=== PATIENT | female | born 1960 | race Caucasian/White ===

== ENCOUNTER 2023-02-19 14:26 | Outpatient (REF) | payer OTHER, SELFPAY ==
--- NOTE | ~2023-02-19 | XR_ITS ---
EXAMINATION: XR LUMBOSACRAL SPINE CLINICAL INFORMATION: Reason for Exam M54.40 - Lumbago with sciatica, unspecified side COMPARISON: None TECHNIQUE: 4 views of the lumbar spine FINDINGS: 5 nonrib-bearing lumbar-type vertebral bodies. Status post L3-L5 discectomy and posterior spinal fusion. No hardware fracture or complication. Vertebral body heights are maintained. Grade 1 anterolisthesis of L3 on L4 not significantly changed on flexion extension views. Mild degenerative disc disease at L5-S1 and at the thoracolumbar junction with loss of disc space height. Paravertebral soft tissues are unremarkable. XR/XR lumbar spine 4V min IMPRESSION: 1. Status post L3-L5 discectomy and posterior spinal fusion. No hardware fracture or complication. 2. Grade 1 anterolisthesis of L3 on L4 not significantly changed on flexion extension views. 3. Mild degenerative disc disease at L5-S1 and at the thoracolumbar junction.
== END 2023-02-19 14:27 | disposition home or self-care (01) ==
LOC: HO.HOSX 14:26
PROVIDERS: Visit Provider Physician Assistant
DX: M54.40 Lumbago with sciatica, unspecified side (principal)
CPT/HCPCS: 72110; 99212

== ENCOUNTER 2025-08-06 12:07 | Outpatient (AMB) | payer MEDICARE, MEDICAID, SELFPAY ==
--- NOTE | 2025-08-06 12:09 | MHC.OFFVIS ---
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 Allergies oxycodone Adverse Reaction (Severe, Verified 08/06/25 12:12) Palpitations Medication List - Last Reconciled 08/06/25 by Azul Bacon LPN amlodipine 10 mg PO DAILY cane As directed cetirizine 10 mg PO DAILY fluticasone propionate 50 mcg/actuation sprays intranasal losartan 100 mg PO DAILY meloxicam 15 mg PO DAILY metformin 500 mg PO QAM metoprolol succinate ER 100 mg PO DAILY omeprazole 20 mg PO DAILY semaglutide (Ozempic) 2 mg subcut QWEEK simvastatin 20 mg PO BEDTIME HPI HPI CHRONIC BILATERAL LOW BACK PAIN: Details: History of Present Illness The patient is a 65-year-old female presenting for management of chronic pain. She has a history of back pain and reports that her pain symptoms persist. She is concerned that her fusion hardware is coming loose and wants to make sure that everything is where it's supposed to be . Pain Description - Location: The patient has a history of pain in her back and a shoulder issue. - Character: The pain is described as persistent. - Interference with function: She reports that her condition makes her feel tired. Physical Exam - Appears afebrile. - Alert and oriented. - Mood and affect appropriate. - Follows and participates in conversation appropriately. - Respiratory effort is unlabored. Pain Management: - Analgesia: The patient's pain is persistent. - Activities of Daily Living: The patient reports feeling tired. [facility] Medical History (Updated 06/05/25 @ 10:26 by Azul Bacon LPN) Primary osteoarthritis of both knees GERD (gastroesophageal reflux disease) Hyperlipidemia Diabetes Essential hypertension Physical Exam Vital Signs: Last Vital Signs Pulse 89 08/06/25 12:11 Resp 16 08/06/25 12:11 BP 180/74 H 08/06/25 12:11 Pulse Ox 97 08/06/25 12:11 Oxygen Delivery Method Room Air 08/06/25 12:11 BMI result Body Mass Index 46.5 Assessment & Plan Assessment & Plan (1) Back pain of lumbar region with sciatica: Code(s): M54.40 - Lumbago with sciatica, unspecified side Category: Medical (2) H/O spinal fusion: Code(s): Z98.1 - Arthrodesis status Category: Surgical Plan Plan Patient was informed and verbally consented to the use of an ambient scribe for clinic note documentation during this visit. 1. Chronic Pain/Failed Back Surgery - CT scan lumbar spine to rule out hardware malfunction. - Discussed options such as injections or SCS/ITP, but patient declined these. - Physical therapy with massage was also mentioned as a potential modality. - The patient will follow up with spine surgery after the CT scan to ensure stability of the fusion construct. Discussion Notes I discussed the patient's ongoing pain and the need for further diagnostic workup. I have ordered a CT scan and will have the patient follow up to review the results. We briefly reviewed potential treatment options, including physical therapy with massage as well as more invasive approaches like injections or an implant, should they be necessary in the future. Patient Instructions - Please get the CT scan that was ordered. - Please schedule a follow-up appointment after the CT scan is complete so we can review the results together. Orders: Orders CT lumbar spine wo IV con 08/06/25 M54.40 - Lumbago with sciatica, unspecified side, Z98.1 - Arthrodesis status Coding Level of Care Code New Pt Level 4 (80667) Diagnoses Back pain of lumbar region with sciatica M54.40 H/O spinal fusion Z98.1
[2025-08-06 12:11] VITALS: BP 180/74; PULSE 89; RESP 16; O2SAT 97; BMI 46.5
--- OUTSIDE RECORDS SUMMARY | 2025-08-06 15:24 | XMS_ITS | Data Portability ---
Author Organization [place] - [facility], Allergy Address [address] [address] Care Team Providers Care Internal Specialist Name Role Phone SAIRA SOUSA Primary Care Provider Assessment Encounter Date Assessment Date Assessment LastModified by Organization Details LastModified Time 12/05/2024 12/05/2024 Cerumen removed today to reveal damp skin with fungal hyphae. Recommend clotrimazole x 10 days and return to verify resolution and update audiometric testing. Once the infection has cleared, would consider fluocinolone and/or Lotrisone as maintenance, along with dry ear precautions and Q-tip avoidance. [email or web address] Not available 12/05/2024 09:30:53 12/18/2024 12/18/2024 64-year-old female with bilateral mycotic otitis externa presents for reevaluation. She reports persistent otic pruritus despite topical clotrimazole. External auditory canals with moderate fungal debris bilaterally, removed with suction. TMs are normal to inspection. Offered continuing antifungal drops versus ointment, and patient would like to trial the latter. Lotrisone placed into external auditory canals bilaterally. Patient will return in 2 weeks to verify resolution and update audiometric testing. Once the infection has cleared, would consider fluocinolone and/or Lotrisone as maintenance, along with dry ear precautions and Q-tip avoidance. [email or web address] Not available 12/18/2024 16:52:28 01/01/2025 01/01/2025 64-year-old female with history of recurrent fungal otitis externa presents for reevaluation of the ears. Patient reports ear pruritus resolved with Lotrisone in bilateral external auditory canals. External auditory canals are without obstruction or purulence today. TMs are normal to inspection. Audiometric testing demonstrates normal neurosensory hearing and tympanometry. Will send topical Lotrisone to use as maintenance medication 1-2x weekly for external ear pruritus. Patient will follow-up for routine cerumen debridement in 6 months. [email or web address] Not available 01/01/2025 16:58:36 07/06/2025 07/06/2025 64-year-old female, with a history of recurrent fungal otitis externa, presents for wax removal. Cerumen impaction was completely obstructing the bilateral external auditory canals and removed using a combination of instruments and suction. Patient tolerated the procedure well. Tympanic membranes are otherwise intact with well aerated middle ear spaces. Recommend hydrocortisone- acetic acid drops as needed for aural pruritus. Proper dosing and use was reviewed. Follow up in 4 months for repeat debridement. [email or web address] Not available 07/06/2025 18:13:08 Plan of Treatment Reminders Order Date Submit Date Provider Last Modified By Organization Details Last Modified Time Details Appointments Establish ed 15 2025 02:00P NAUN LEVIN Not available Not available Not available Lab None recorded. Referral None recorded. Procedures None recorded. Surgeries None recorded. Imaging None recorded. Medication Orders hydrocort isone-mason tic acid 1 %-2 % ear drops 2024 025 [facility] #[id number], [address] [place], [address], 07/06/2025 13:24:45 clotrimaz ole-betam ethasone 1 %-0.05 % topical cream 2024 025 [facility] #1024, [address] [place], [address], 01/01/2025 13:33:00 clotrimaz ole 1 % topical solution 2024 025 [facility] #[id number], [address] [place], [address], 12/05/2024 09:26:45 Patient TargetsNo targets recorded. Patient InstructionsNo instructions recorded. Reason for Referral None Reported. Results Created Date Observation Date Name Description Value Unit Range Abnormal Flag Note LastModifiedBy Organization Detail LastModifiedTime 01/02/20 25 audio gram No observ ation record ed. BARCODE Not Available 2024 17:17:45 Result Notes None recorded. Problems Name Problem SNOMED Code Status Onset Date Resolution Date Notes Provider Name and Address Organization Details Recorded Time Bilateral external auditory canal chronic otitis externa 54836809822 57290 Active 2015 Unspecifi ed chronic otitis externa, bilateral ; Note: Date Diagnosed : 12/20/2015 11:06 AM (H60.63) Not Available [facility] 4 02:12:46 Impacted cerumen of bilateral ears 19327508499 97325 Active 2015 Impacted cerumen, bilateral ; Note: Date Diagnosed : 12/20/2015 11:04 AM (H61.23) NAUN GUAN [address] [facility] [place],[address], [place], [address] , [facility] - [facility] 5 18:13:12 Acute otitis externa 56722309 Active 2023 ALESHIA GARCÍA PA-C [address] [facility] [place],[facility] [address], [place], [address] , [facility] - [facility] 4 14:52:36 Otorrhea 96422871 Active 2023 ALESHIA GARCÍA PA-C [address] [facility] [place],[facility] [address], [place], [address] , [facility] - [facility] 4 14:52:40 Impacted cerumen in left ear 62500569670 61182 Active 2023 ALESHIA GARCÍA PA-C [address], [place], [address] , [place] - [facility] 4 14:52:56 Acute otitis externa 89674775 Active 2023 ALESHIA GARCÍA PA-C [address] [facility] [place],[address], [place], [address] , [facility] - [facility] 4 14:53:02 Otitis externa 4159201 Active 2023 ALESHIA GARCÍA PA-C [address] [facility],[place] [address], [place], [address] , [facility] - [facility] 4 14:53:52 Bruxism 366261884 Active 2023 AUGUST ALBRIGHT MD [address] [facility],[place] [address], [place], [address] , [place] - [facility] 4 14:35:38 Candidal otitis externa 02070473 Active 2024 Carylkrunal Velez null, [place] - [facility] 5 09:26:05 Eczema of external auditory canal 14037187 Active 2024 Caryl canchola, [place] - [facility] 5 09:58:39 Chronic mycotic otitis externa 811239375 Active 2024 RADHA QURESHI PA-C [address] [facility],[place] [address], [place], [address] , [place] - [facility] 5 13:31:58 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 - [facility] 5 13:44:13 Itching of ear 690852923 Active 2024 NAUN GUAN [address] [facility] [place] [address], [place], [address] , [facility] - [facility] 5 13:23:18 Problem Notes None recorded. Procedures Surgical History Date Name Laterality Status Provider Name and Address Organization Details Recorded Time 5 Cerumen removal without microscope bilat completed NAUN GUAN [address] [facility] [place] [address], [place], [address], [facility] - [facility] 07/06/2025 18:11:51 5 Air & Speech Audio with Tymps - 83838, 86539 & 44962 completed AIRAM PERRY [address] [facility],[place] [address], [place], [address], [facility] - [facility] 01/01/2025 13:44:27 5 Cerumen removal without microscope bilat completed Caryl Velez [place] - [facility] 12/05/2024 09:57:53 4 Wax_DP completed AUGUST ALBRIGHT MD [address] [facility] [place] [address], [place], [address], [facility] - [facility] 03/24/2024 14:34:17 4 Cerumen removal without microscope left completed ALESHIA GARCÍA PA-C 100 [facility],[address], [address], [facility] - [facility] 01/20/2024 14:52:14 Imaging Results None recorded. Procedure Notes None recorded. Medical Equipment None Reported. Allergies Allergen ID Allergen Name Allergen Category Reaction Reaction Severity Criticality Documentation Date Start Date Code Code System Note Provider Name and Address Organization Details Recorded Time 449346 house dust allergeni c extract environme nt,medica tion dyspnea wheezing Not available Not available [facility] 07/06/20252007 90237 9 RxNorm Also aller gic to feath ers; same react ion SOB unrec ogniz ed react ion (text : Runny nose, code: 69198 003) (from exter nal sourc e) Not Available [employer] - External Data Service - prod 5 04:15:46 896201 acetamino phen / hydrocodo ne medicatio n Not available Not available Not available 07/06/20252021 79387 2 RxNorm Vomit ing with dosin g unrec ogniz ed react ion (text : GI intol eranc e, code: 24931 5008) (from exter nal sourc e) Not Available [employer] - External Data Service - prod 5 04:15:46 880550 acetamino phen / oxycodone medicatio n Not available Not available Not available 07/06/20252005 16446 3 RxNorm unrec ogniz ed react ion (text : Nause a And Vomit ing, code: 00113 000) [facility] Not Available [employer] - External Data Service - prod 5 04:15:46 717579 mite extract Not available other Not available Not available 07/06/20252007 05701 3 RxNorm Also aller gic to [facility]; same react ion Not Available [employer] External Data Service - prod 5 04:15:47 Medications Name Sig Start Date Stop Date Status Note LastModified by Organization Details LastModified Time amoxicill in 500 mg capsule TAKE 1 CAPSULE BY MOUTH EVERY 8 HOURS FOR 5 DAYS 12/05 completed Not Available Not Available Not Available metformin 500 mg tablet TAKE 1 TABLET BY MOUTH EVERY DAY WITH BREAKFAS T active Not Available Not Available No t Available terconazo le 0.4 % vaginal cream INSERT 1 APPLICAT ORFUL AT BEDTIME FOR 7 NIGHTS active Not Available Not Available No t Available neomycin- polymyxin -hydrocor t 3.5 mg/mL-10, 000 unit/mL-1 % ear solution 12/05 completed Medicati on ID: [id number] D uration Value: 6 Brand Name: neomycin -polymyx in-HC Se nd Method: E-Prescr ibed Sub s Allowed: subs OK Medic ationGen ericName : neomycin -polymyx in-HC Not Available Not Available Not Available doxycycli ne hyclate 100 mg capsule TAKE 1 CAPSULE ORALLY 2 TIMES A DAY FOR 10DAYS WITH AT LEAST 8OZ OF WATER DON'T LIE DOWN FOR 30 MIN 12/05 completed Not Available Not Available Not Available cetirizin e 10 mg tablet TAKE 1 TABLET BY MOUTH EVERY DAY active Not Available Not Available No t Available ibuprofen 800 mg tablet TAKE 1 TABLET BY MOUTH EVERY 8 HOURS NEEDED FOR PAIN 12/05 completed Not Available Not Available Not Available ofloxacin 0.3 % eye drops PLACE 1 TO 2 DROPS INTO EACH EYE EVERY 4 HOURS FOR 5 TO 7 DAYS 12/05 completed Not Available Not Available Not Available metoprolo l succinate ER 50 mg tablet,ex tended release 24 hr TAKE 1 TABLET BY MOUTH EVERY DAY active Not Available Not Available No t Available hydrocodo ne 5 mg-acetam inophen 325 mg tablet 12/05 completed Medicati on ID: [id number] D uration Value: 13 Brand Name: hydrocod one-acet aminophe n Send Method: E-Prescr ibed Sub s Allowed: subs OK Speci al Instruct ion: TK 1 T PO Q 8 TO 12 H PRN P Medica tionGene ricName: hydrocod one-acet aminophe n Not Available Not Available Not Available meloxicam 15 mg tablet TAKE 1 TABLET (15 MG TOTAL) BY MOUTH ONE TIME EACH DAY. active Not Available Not Available No t Available prednison e 20 mg tablet 12/05 completed Medicati on ID: [id number] D uration Value: 5 Brand Name: predniso ne Send Method: E-Prescr ibed Sub s Allowed: subs OK Medic ationGen ericName : predniso ne Not Available Not Available Not Available metoprolo l succinate ER 100 mg tablet,ex tended release 24 hr TAKE 1 TABLET BY MOUTH 1 TIME EACH DAY. DO NOT CRUSH OR CHEW. active Not Available Not Available No t Available acetamino phen 300 mg-codein e 30 mg tablet TAKE 1 TABLET BY MOUTH EVERY 8 HOURS NEEDED active Not Available Not Available No t Available amlodipin e 5 mg tablet 12/05 completed Medicati on ID: [id number] D uration Value: 30 Brand Name: amlodipi ne Send Method: E-Prescr ibed Sub s Allowed: subs OK Speci al Instruct ion: TK 1 T PO QD Medic ationGen ericName : amlodipi ne Not Available Not Available Not Available ketorolac 0.5 % eye drops PLEASE SEE ATTACHED FOR DETAILED DIRECTIO NS active Not Available Not Available No t Available ofloxacin 0.3 % ear drops PLEASE SEE ATTACHED FOR DETAILED DIRECTIO NS 12/05 completed Not Available Not Available Not Available methocarb caitlyn 750 mg tablet TYAKE 2 TABLETS BY MOUTH (1500MG) EVERY 6 HOURS NEEDED FOR SPASMS active Not Available Not Available No t Available clindamyc in 1 % topical gel APPLY TO AXILLA TWICE A DAY NEEDED FLARES active Not Available Not Available No t Available hydrocort isone-mason tic acid 1 %-2 % ear drops INSTILL 2 DROPS INTO AFFECTED EARS BY OTIC ROUTE 4 TIMES PER DAY NEEDED FOR ITCHING active Not Available Not Available No t Available amlodipin e 10 mg tablet TAKE 1 TABLET BY MOUTH 1 TIME EACH DAY. active Not Available Not Available No t Available simvastat in 20 mg tablet TAKE 1 TABLET BY MOUTH EVERYDAY AT BEDTIME active Not Available Not Available No t Available Cipro 500 mg tablet Take 1 tablet by mouth twice a day 12/05 completed Medicati on ID: [id number] D uration Value: 10 Prescri bed By Name: GENE Jordan nd Name: Donnie Se nd Method: E-Prescr ibed Sub s Allowed: subs OK Medic ationGen ericName : Cipro Not Available Not Available Not Available triamcino lone acetonide 0.1 % topical ointment APPLY A THIN LAYER TOPICALL Y TO AFFECTED AREA DAILY active Not Available Not Available No t Available clotrimaz ole-betam ethasone 1 %-0.05 % topical cream APPLY TO THE SKIN OF THE AFFECTED EXTERNAL EAR CANAL WITH FINGERTI P TWICE WEEKLY active Not Available Not Available No t Available lidocaine 5 % topical patch APPLY 1 PATCH TOPICALL Y DAILY (12 HOURS ON, 12 HOURS OFF) active Not Available Not Available No t Available clotrimaz ole 1 % topical solution INSTILL 4 DROPS INTO BOTH EARS TWICE DAILY FOR 10 DAYS active Not Available Not Available No t Available Ear Drops (carbamid e peroxide) 6.5 % PLEASE SEE ATTACHED FOR DETAILED DIRECTIO NS active Not Available Not Available No t Available diclofena c potassium 50 mg tablet TAKE 1 TABLET (50 MG TOTAL) BY MOUTH 3 TIMES A DAY FOR 10 DAYS 12/05 completed Not Available Not Available Not Available omeprazol e 20 mg capsule,d elayed release TAKE 1 CAPSULE BY MOUTH 1 TIME EACH DAY. active Not Available Not Available No t Available hydrochlo rothiazid e 25 mg tablet 12/05 completed Medicati on ID: [id number] D uration Value: 30 Brand Name: hydrochl orothiaz boaz Send Method: E-Prescr ibed Sub s Allowed: subs OK Speci al Instruct ion: TK 1 T PO D Medica tionGene ricName: hydrochl orothiaz boaz Not Available Not Available Not Available clobetaso l 0.05 % topical ointment 2014 active Medicati on ID: [id number] D uration Value: 7 Brand Name: clobetas ol Send Method: E-Prescr ibed Sub s Allowed: subs OK Medic ationGen ericName : clobetas ol Not Available Not Available Not Available triamcino lone acetonide 0.1 % lotion APPLY TO SCALP TWICE DAILY NEEDED FOR FLARES, DECREASE USE SYMPTOMS IMPROVE 12/05 completed Not Available Not Available Not Available methylpre dnisolone 4 mg tablets in a dose pack TAKE 1 TABLET BY MOUTH DIRECTED ON THE PACKAGE. active Not Available Not Available No t Available benazepri l 10 mg tablet 12/05 completed Medicati on ID: [id number] D uration Value: 30 Brand Name: benazepr il Send Method: E-Prescr ibed Sub s Allowed: subs OK Speci al Instruct ion: TK 1 T PO D. Medic ationGen ericName : benazepr il Not Available Not Available Not Available hydrocort isone 2.5 % topical ointment APPLY TO PINK AREAS ON AXILLA TWICE A DAY NEEDED FOR FLARES, DECREASE SYMPTOMS IMPROVE 12/05 completed Not Available Not Available Not Available ketoconaz ole 2 % topical cream APPLY TO FACE TWICE A DAY NEEDED FOR FLARES active Not Available Not Available No t Available losartan 100 mg tablet TAKE 1 TABLET BY MOUTH 1 TIME EACH DAY. active Not Available Not Available No t Available fluticaso ne propionat e 50 mcg/actua tion nasal spray,luna pension SPRAY 2 SPRAYS BY NASAL ROUTE DAILY active Not Available Not Available No t Available loratadin e 10 mg tablet 2013 active Medicati on ID: [id number] D uration Value: 30 Brand Name: loratadi ne Send Method: E-Prescr ibed Sub s Allowed: subs OK Medic ationGen ericName : loratadi ne Not Available Not Available Not Available naproxen 500 mg tablet 2014 active Medicati on ID: [id number] D uration Value: 30 Brand Name: naproxen Send Method: E-Prescr ibed Sub s Allowed: subs OK Medic ationGen ericName : naproxen Not Available Not Available Not Available Laxative (bisacody l) 5 mg tablet,de layed release TAKE 2 TABLETS BY MOUTH RIGHT BEFORE YOUR FIRST DOSE OF LIQUID PREP. 12/05 completed Not Available Not Available Not Available ciproflox acin 0.3 %-dexamet hasone 0.1 % ear drops,luna pension APPLY 4 DROPS TO RIGHT EAR TWICE DAILY X 14 DAYS active Not Available Not Available No t Available GaviLyte- G 236 gram-22.7 4 gram-6.74 gram-5.86 gram oral solution PLEASE SEE ATTACHED FOR DETAILED DIRECTIO NS 12/05 completed Not Available Not Available Not Available Trulicity 1.5 mg/0.5 mL subcutane ous pen injector INJECT 1.5 MG INTO THE SKIN ONCE A WEEK FOR 4 DOSES. active Not Available Not Available No t Available Ozempic 1 mg/dose (4 mg/3 mL) subcutane ous pen injector INJECT 1 MG UNDER THE SKIN EVERY 7 (SEVEN) DAYS FOR 28 DAYS. active Not Available Not Available No t Available Ozempic 2 mg/dose (8 mg/3 mL) subcutane ous pen injector INJECT 2 MG SUBCUTAN EOUSLY EVERY 7 DAYS active Not Available Not Available No t Available Ozempic 0.25 mg or 0.5 mg (2 mg/3 mL) subcutane ous pen injector INJECT 0.5 MG INTO THE SKIN ONCE A WEEK FOR 4 DOSES. active Not Available Not Available No t Available Vitals Date Recorded Body height Body mass index (BMI) Body weight Provider Name and Address Organization Details Last Updated DateTime 12/05/2024 167.64 cm 48.3 kg/m2 060268.12 g Angelique Steinberg [place] - [facility] 12/05/2024 09:15:03 Date Recorded Body height Body mass index (BMI) Body weight Provider Name and Address Organization Details Last Updated DateTime 12/18/2024 167.64 cm 48.1 kg/m2 286864.53 g Angelique Steinberg [place] - [facility] 12/18/2024 13:05:15 Date Recorded Body height Body mass index (BMI) Body weight Provider Name and Address Organization Details Last Updated DateTime 01/01/2025 167.64 cm 48.1 kg/m2 320315.53 g Renetta Brar [facility] 01/01/2025 13:11:03 Date Recorded Body height Body mass index (BMI) Body weight Provider Name and Address Organization Details Last Updated DateTime 07/06/2025 167.64 cm 47.1 kg/m2 539251.97 g Angelique Steinberg [facility] 07/06/2025 13:04:56 Social History None recorded. Functional Status None recorded. Mental Status None recorded. Family History Nothing Reported. Medical History No medical history recorded. Gynecological HistoryNo gynecological history recorded. Obstetrics History GPAL:G 0 P 0 0 0 0 Past Encounters Encounter ID Performer Location Encounter Start Date Encounter Closed Date Diagnosis/Indication Diagnosis SNOMED-CT Code Diagnosis ICD10 Code Diagnosis IMO Codes Diagnosis Note [id number] ALESHIA GARCÍA PA-C [facility] [address] [address] 01/20/2024 14:13:11 01/20/2024 14:42:27 Impacted cerumen in left ear 9958556123 540252 H61.22 Otitis externa 2080162 H 60.311 [id number] AUGUST ALBRIGHT MD [facility] [address] [address] 03/24/2024 13:44:39 03/24/2024 14:35:51 Impacted cerumen of bilateral ears 7125284107 048346 H61.23 Bruxism 874656387 F45.8 [id number] CARYL VELEZ PA-C [facility] [address] [address] 12/05/2024 09:04:47 12/05/2024 09:31:15 Candidal otitis externa 78552872 B37.84 Impacted c erumen of bilateral ears 5855933024 946515 H61.23 Eczema of external auditory canal 86349397 H60.549 [id number] RADHA QURESHI PA-C [facility] [address] [address] 12/18/2024 12:49:26 12/18/2024 13:36:40 Eczema of external auditory canal 64787430 H60.549 Bilateral external auditory canal chronic otitis externa 2120065486 532498 H60.63 [id number] RADHA QURESHI PA-C [facility] [address] [address] 01/01/2025 12:49:27 01/01/2025 13:59:04 Bilateral external auditory canal chronic otitis externa 1307537883 589877 H60.63 [id number] AIRAM PERRY [facility] [address] [address] 01/01/2025 13:37:00 01/12/2025 05:08:34 Abnormal auditory perception 17913984 H93.293 75880086 Audiologic al evaluation results: 01/01/2025R ight ear:Normal hearing with excellent word recognitio n.Left ear:Normal hearing with excellent word recognitio n. Tympanomet ry:Right Ear:Type ALeft Ear:Type A 09999 NAUN GUAN [facility] [address] [address] 07/06/2025 12:56:42 07/06/2025 13:27:48 Itching of ear 725932365 L29.9 8429673 Impacted c erumen of bilateral ears 8164751255 840247 H61.23 288472 Health Concerns Section Related Observation LastModified by Organization Detai ls LastModified Time None Recorded Concern Status LastModified by Organization Details LastModified Time None Recorded Advance Directives Directive None Recorded Payers Insurance Date Sequence Insurance Name Policy Number Policy Baxter Covered Member ID Baxter Member ID Guarantor Name 11/20/2024 1 [facility] - [facility] (MEDICAID REPLACEMENT - HMO) VITO Mcneal [id number] Selina Mcneal 07/06/2025 2 [place] [facility] Selina Mcneal [id number] Selina Mcneal 07/06/2025 1 [place] B[place] [employer] Selina Mcneal [id number] Selina Mcneal Notes Date Note Type Note Provider Name and Address Organization Details Recorded Time 12/05/2024 text/html ROS as noted in the [facility] 64 year old female presents for evaluation of the ears. She reports about 10 days ago she was diagnosed with bilateral otitis externa and started on ofloxacin but she is not sure the drops are penetrating, as she also has cerumen impaction. She has been using them twice daily for about 10 days. Both ears are itchy, uncomfortable, and leaky. This has been a recurrent issue for her for years. The ears are often itchy and flaky. DELFINA DAVISON MD [address], [address], [facility] - [facility] 12/05/2024 17:00:42 12/18/2024 text/html ROS as noted in the [facility] 64-year-old female with bilateral mycotic otitis externa presents for reevaluation. She trialed topical clotrimazole 3 times daily for 10 days. She reports persistent ear itchiness. Denies pain, drainage, or hearing changes. She has history of diabetes. AUGUST ALBRIGHT MD [address] [place] [address], [address], [facility] - [facility] 12/19/2024 08:56:26 01/01/2025 text/html ROS as noted in the [facility] 64-year-old female with history of recurrent fungal otitis externa presents for reevaluation of the ears. Lotrisone was placed into bilateral external auditory canals at last visit. Patient reports ear itchiness has resolved with medication. No new concerns today. AUGUST ALBRIGHT MD 100 [facility],[address], [address], [facility] 01/01/2025 17:02:09 07/06/2025 text/html ROS as noted in the [facility] 64-year-old female, with a history of recurrent fungal otitis externa, presents for wax removal. Patient reports a blockage sensation which she attributes to cerumen accumulation, as well as intermittent itching deep inside both ears. Denies otalgia, otorrhea, and changes in hearing. AUGUST ALBRIGHT MD [address] [place] [address], [place], [address], [facility] - [facility] 07/08/2025 07:23:15 OBGyn Episode No OBEpisode recorded.
--- OUTSIDE RECORDS SUMMARY | 2025-08-06 15:24 | XMS_ITS | Continuity of Care Document ---
Author Organization [place] - [facility], [facility] Address [address] [place] [address] Care Team Providers Care Human Capital Consultant Name Role Phone SAIRA SOUSA Primary Care Provider Assessment Encounter Date Assessment Date Assessment LastModified by Organization Details LastModified Time 07/06/2025 07/06/2025 64-year-old female, with a history of recurrent fungal otitis externa, presents for wax removal. Cerumen impaction was completely obstructing the bilateral external auditory canals and removed using a combination of instruments and suction. Patient tolerated the procedure well. Tympanic membranes are otherwise intact with well aerated middle ear spaces. Recommend hydrocortisone -acetic acid drops as needed for aural pruritus. [...] 1 %-2 % ear drops 2024 025 [place] [id number], [address] [place], [address], 07/06/2025 13:24:45 Patient TargetsNo targets recorded. Patient InstructionsNo instructions recorded. Reason for Referral None Reported. Problems Name Problem SNOMED Code Status Onset Date Resolution Date Notes Provider Name and Address Organization Details Recorded Time Bilateral external auditory canal chronic otitis externa 08550049033 60047 Active 2015 Unspecifi ed chronic otitis externa, bilateral ; Note: Date Diagnosed : 12/20/2015 11:06 AM (H60.63) Not Available [facility] 4 02:12:46 Impacted cerumen of bilateral ears 48815128949 87484 Active 2015 Impacted cerumen, bilateral ; Note: Date Diagnosed : 12/20/2015 11:04 AM (H61.23) NAUN GUAN [address], [place], [address] , [place] [facility] 5 18:13:12 Acute otitis externa 86568436 Active 2023 ALESHIA GARCÍA PA-C [address], [place], [address] , [place] [facility] 4 14:52:36 Otorrhea 37312908 Active 2023 ALESHIA GARCÍA PA-C [address], [place], [address] , [place] [facility] 4 14:52:40 Impacted cerumen in left ear 63254191021 05826 Active 2023 ALESHIA GARCÍA PA-C [address], [place], [address] , [facility] - [facility] 4 14:52:56 Acute otitis externa 67853972 Active 2023 ALESHIA GARCÍA PA-C [address], [place], [address] , [place] [facility] 4 14:53:02 Otitis externa 2257797 Active 2023 ALESHIA GARCÍA PA-C [address], [place], [address] , [place] [facility] 4 14:53:52 Bruxism 107406524 Active 2023 AUGUST ALBRIGHT MD [address] [facility],[place] [address], [place], [address] , [facility] - [facility] [place] 4 14:35:38 Candidal otitis externa 73568314 Active 2024 Krissy Oswaldchen null, [place] - [facility] [place] 5 09:26:05 Eczema of external auditory canal 87760290 Active 2024 Krissyphyllis Currie null[place] - [facility] [place] 5 09:58:39 Chronic mycotic otitis externa 715942190 Active 2024 RADHA QURESHI PA-C [address] [facility],[place] [address], [place], [address] , [place] [facility] [place] 5 13:31:58 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 2024 RADHA QURESHI PA-C [address] [facility],[place] [address], [place], [address] , [place] [facility] [place] 5 13:31:58 Abnormal auditory perceptio n 30699171 Active 2024 ANGELITA NAVA, AIRAM [address] [facility],[place] [address], [place], [address] , [place] - [facility] [place] 5 13:44:13 Itching of ear 879661451 Active 2024 NAUN GUAN [address] [facility],[place] [address], [place], [address] , [facility] - [facility] [place] 5 13:23:18 Problem Notes None recorded. Procedures Surgical History Date Name Laterality Status Provider Name and Address Organization Details Recorded Time 5 Cerumen removal without microscope bilat completed NAUN GUAN [address] [facility],[address], [place], [address], [place] - [facility] [place] 07/06/2025 18:11:51 5 Air & Speech Audio with Tymps - 16204, 49323 & 19535 completed AIRAM PERRY [address] [facility],[address] [facility], [place], [address], [facility] - [facility] 01/01/2025 13:44:27 5 Cerumen removal without microscope bilat completed Krissy Currie [place] - [facility] 12/05/2024 09:57:53 4 Wax_DP completed AUGUST ALBRIGHT MD [address] [address],[place] [address], [place], [address], [facility] - [facility] 03/24/2024 14:34:17 4 Cerumen removal without microscope left completed ALESHIA GARCÍA PA-C [address] [facility],[place] [address], [place], [address], [facility] - [facility] 01/20/2024 14:52:14 Imaging Results None recorded. Procedure Notes None recorded. Medical Equipment None Reported. Allergies Allergen ID Allergen Name Allergen Category Reaction Reaction Severity Criticality Documentation Date Start Date Code Code System Note Provider Name and Address Organization Details Recorded Time 251460 house dust allergeni c extract environme nt,medica tion dyspnea wheezing Not available Not available [facility] 07/06/20252007 67570 9 RxNorm Also aller gic to feath ers; same react ion SOB unrec ogniz ed react ion (text : Runny nose, code: 71053 003) (from exter nal sourc e) Not Available [employer] External Data Service - prod 5 04:15:46 814547 acetamino phen / hydrocodo ne medicatio n Not available Not available Not available 07/06/20252021 64515 2 RxNorm Vomit ing with dosin g unrec ogniz ed react ion (text : GI intol eranc e, code: 41705 5008) (from exter nal sourc e) Not Available [employer] External Data Service - prod 5 04:15:46 693323 acetamino phen / oxycodone medicatio n Not available Not available Not available 07/06/20252005 98149 3 RxNorm unrec ogniz ed react ion (text : Nause a And Vomit ing, code: 79233 000) (from exter nal sour e) Not Available [employer] - External Data Service - prod 5 04:15:46 362393 mite extract Not available other Not available Not available 07/06/20252007 26615 3 RxNorm Also aller gic to [facility] ers; same react ion Not Available [employer] - External Data Service - prod 5 04:15:47 [...] ear solution 12/05 completed Medicati on ID: [id number] D uration Value: 6 Brand Name: neomycin [...] mg tablet 12/05 completed Medicati on ID: [id number] D uration Value: 13 Brand Name: hydrocod [...] mg tablet 12/05 completed Medicati on ID: [id number] D uration Value: 5 Brand Name: predniso [...] mg tablet 12/05 completed Medicati on ID: [id number] D uration Value: 30 Brand Name: amlodipi [...] a day 12/05 completed Medicati on ID: [id number] D uration Value: 10 Prescri bed By Name: GENE Jordan nd Name: Cipro Se nd Method: E-Prescr ibed Sub s [...] mg tablet 12/05 completed Medicati on ID: [id number] D uration Value: 30 Brand Name: hydrochl orothiaz boaz Send Method: E-Prescr ibed Sub s Allowed: subs OK Speci al Instruct ion: TK 1 T PO D Medica tionGene ricName: hydrochl orothiaz boaz Not Available Not Available Not Available clobetaso l 0.05 % topical ointment 2014 active Medicati on ID: [id number] D uration Value: 7 Brand Name: clobetas [...] mg tablet 12/05 completed Medicati on ID: [id number] D uration Value: 30 Brand Name: benazepr [...] mg tablet 2013 active Medicati on ID: [id number] D uration Value: 30 Brand Name: loratadi ne Send Method: E-Prescr ibed Sub s Allowed: subs OK Medic ationGen ericName : loratadi ne Not Available Not Available Not Available naproxen 500 mg tablet 2014 active Medicati on ID: [id number] D uration Value: 30 Brand Name: naproxen [...] Updated DateTime 07/06/2025 167.64 cm 47.1 kg/m2 945878.97 g Angelique Steinberg [place] - [facility] 07/06/2025 13:04:56 Social History None recorded. Functional Status None recorded. Mental Status None recorded. Family History Nothing Reported. Medical History No medical history recorded. Gynecological HistoryNo gynecological history recorded. Obstetrics History GPAL:G 0 P 0 0 0 0 Past Encounters Encounter ID Performer Location Encounter Start Date Encounter Closed Date Diagnosis/Indication Diagnosis SNOMED-CT Code Diagnosis ICD10 Code Diagnosis IMO Codes Diagnosis Note [id number] NAUN GUAN [facility] [address] [address] 07/06/2025 12:56:42 07/06/2025 13:27:48 Itching of ear 913973112 L29.9 3117779 Impacted c erumen of bilateral ears 0380505189 632340 H61.23 767527 Health Concerns Section Related Observation LastModified by Organization Detai ls LastModified Time None Recorded Concern Status LastModified by Organization Details LastModified Time None Recorded Payers Encounter Date Sequence Insurance Name Policy Number Policy Baxter Covered Member ID Baxter Member ID Guarantor Name 07/06/2025 2 [place] Selina Duong Fredis [id number] Selina Mcneal 07/06/2025 1 [place] B[place] [employer] Selina Duong Fredis [id number] Selina Mcneal Notes Date Note Type Note Provider Name and Address Organization Details Recorded Time 07/06/2025 text/html ROS as noted in the HPI 64-year-old female, with a history of recurrent fungal otitis externa, presents for wax removal. Patient reports a blockage sensation which she attributes to cerumen accumulation, as well as intermittent itching deep inside both ears. Denies otalgia, otorrhea, and changes in hearing. AUGUST ALBRIGHT MD [address] [place] [address], [address], [facility] - [facility] 07/08/2025 07:23:15 OBGyn Episode No OBEpisode recorded.
--- OUTSIDE RECORDS SUMMARY | 2025-08-06 15:24 | XMS_ITS | Clinical Summary ---
Author Organization [facility] Address [address] [facility] [address] [place] [address] Phone Care Team Providers Care Screw Eye Assembler Name Role Phone Unavailable Primary Care Provider Unavailabl e Allergies Active Allergy Reactions Criticality Noted Date Comments Dust Mite Extract Other (see comments) 01/05/20 08 Also allergic to feathers; same reaction Other Other (see comments) 11/27/2020 ENVIRONMENTAL Oxycodone-Acetaminop hen 11/27/2020 Medications omeprazole OTC (PriLOSEC OTC) 20 MG EC tablet Take 1 tablet by mouth 1 (one) time each day Active simvastatin (ZOCOR) 20 MG tablet Comments: Filled Date: 2014 5:52PM Patient Notes: TAKE ONE TABLET BY MOUTH DAILY Duration: 90 Active amLODIPine (NORVASC) 10 MG tablet Take 10 mg by mouth 1 (one) time each day Active cetirizine (ZyrTEC) 10 MG tablet Take 10 mg by mouth 1 (one) time each day Active Blood Pressure kit 1 Device Once for 1 dose DX: I10 - Hypertension 1 each 12/12/19 21 Active spironolactone-hy droCHLOROthiazide (ALDACTAZIDE) 25-25 MG per tablet TAKE 1 TABLET BY MOUTH EVERY DAY 90 tablet 1 01/05/20 21 Active furosemide (LASIX) 20 MG tablet TAKE 1 TABLET BY MOUTH ONCE DAILY 30 tablet 1 06/18/20 21 Active amoxicillin-clavu lanate (AUGMENTIN) 875-125 MG per tablet 05/27/20 21 Active Diclofenac Sodium 1 % gel 05/27/20 21 Active losartan (COZAAR) 25 MG tablet 05/18/20 21 Active naproxen (NAPROSYN) 500 MG tablet 05/18/20 21 Active albuterol HFA (PROVENTIL HFA;VENTOLIN HFA) 108 (90 Base) MCG/ACT inhaler Inhale 2 puffs 05/10/20 20 Active baclofen (LIORESAL) 10 MG tablet Take 1 tablet by mouth 2 (two) times a day 12/28/19 21 Active Bismuth Subsalicylate 262 MG tablet Take 524 mg by mouth 11/07/19 21 Active fluticasone (FLONASE) 50 MCG/ACT nasal spray SHAKE LIQUID AND USE 2 SPRAYS IN EACH NOSTRIL EVERY DAY 12/20/19 21 Active omeprazole (PriLOSEC) [address] capsule Take 1 tablet by mouth 1 (one) time each day 02/05/20 21 Active polyethylene glycol (GLYCOLAX) 17 GM/SCOOP powder Take 17 g by mouth 03/23/20 19 Active triamcinolone acetonide (KENALOG-40) 40 MG/ML injection Inject 80 mg into the joint 03/07/20 21 Active Active Problems Problem Noted Date Diagnosed Date Primary gonarthrosis, bilateral 03/07/2021 Smoker 12/13/2020 History of SARS-CoV-2 11/07/2020 Overview (08/18/2021): 11/05/20 Chronic kidney disease 10/16/2020 Hypertensive renal disease 10/16/2020 Obesity 10/16/2020 Prediabetes 02/23/2018 Hidradenitis suppurativa 01/12/2017 Essential hypertension 05/24/2015 Mammographic microcalcification 05/29/2011 Hyperlipidemia 07/22/2010 Gastroesophageal reflux disease 02/01/2006 Social History Tobacco Use Types Packs/Day Years Used Date Smoking Tobacco: Some Days Cigarettes Smokeless Tobacco: Never Alcohol Use Standard Drinks/Week Comments Yes 0 (1 standard drink = 0.6 oz pure alcohol) Alcoholic Drinks/day: Occasional social drink Comments Unknown Sex and Gender Information Value Date Recorded Sex Assigned at Not on file Legal Sex Female 5:02 PM EST Gender Identity Not on file Sexual Orientation Not on file Last Filed Vital Signs Vital Sign Reading Time Taken Comments Blood Pressure 136/76 11/27/2020 3:32 PM EDT Pulse 86 11/27/2020 3:32 PM EDT Temperature - - Respiratory Rate - - Oxygen Saturation 97% 09/11/2020 12:00 PM EST Inhaled Oxygen Concentration - - Weight 130 kg (286 lb 6.4 oz) 11/27/2020 3:32 PM EDT Height 167.6 cm (5' 6 ) 11/27/2020 3:32 PM EDT Body Mass Index 46.23 11/27/2020 3:32 PM EDT Plan of Treatment Health Maintenance Due Date Last Done Comments Breast Cancer Screening 1961 Pneumococcal Vaccine: 50+ Years (1 of 2 - PCV) 1980 Colorectal Cancer Screening: Annual FOBT 2010 Colorectal Cancer Screening: Colonoscopy 2010 Colorectal Cancer Screening: Sigmoidoscopy 2010 Diabetes: Hemoglobin A1C 01/22/2025 024, 03/22/2020 Diabetes: Ophthalmology Exam 01/22/2025 Diabetes: Pedal Pulse Checked 01/22/2025 Diabetes: Sensory Foot Exam 01/22/2025 Diabetes: Visual Foot Exam 01/22/2025 Influenza Vaccine (#1) 2025 07/05/2007 Hepatitis B Vaccine Aged Out 07/22/2010, 02/11/2010, 01/08/2010 No longer eligible based on patient's age to complete this topic Procedures Procedure Name Priority Date/Time Associated Diagnosis Comments BLOOD PANEL (HC) Routine 03/22/2020 12:0 0 AM EDT from Last 3 Months or Most Recently Relevant to Health Maintenance Results * (ABNORMAL) Blood Panel (03/22/2020 12:00 AM EDT) Hemoglobin A1C 6.4(H) <5 % PVNMA 03/22/2020 us [facility] [id number] LICITED RESULTS Final Result PVNMA from Last 3 Months or Most Recently Relevant to Health Maintenance Insurance [place] [id number] Medicaid
--- OUTSIDE RECORDS SUMMARY | 2025-08-06 15:24 | XMS_ITS | Encounter Summary ---
Author Organization [facility] Address [address] [place] [address] Phone Care Team Providers Care Liquor Inspector Name Role Phone Unavailable Primary Care Provider Unavailabl e Encounter Details Date Type Department Care Team (Late st Contact Info) Description 11/13/2020 Orders Only [facility] [address] [place] [address] Magdalena Whaley RN Social History Tobacco Use Types Packs/Day Years [...] on file Sexual Orientation Not on file documented as of this encounter Plan of Treatment Not on file documented as of this encounter Visit Diagnoses Not on filedocumented in this encounter
--- OUTSIDE RECORDS SUMMARY | 2025-08-06 15:24 | XMS_ITS ---
Author Name [facility] Organization Unknown Care Team Organization Name Specialty Phone Email Start Date End Da te [facility] Corrine Ocampo Primary Care 06/15/202304/03 [facility] Jeanette Nye Primary Care 12/21/2022 024 [facility] Harper Mcdonald Primary Care 11/17/2022 04/03/20 24
--- OUTSIDE RECORDS SUMMARY | 2025-08-06 15:24 | XMS_ITS | Clinical Summary ---
Author Organization [facility] OpenRent Address [address] [facility] [place] [address] Phone Care Team Providers Care Perpetual Inventory Clerk Name Role Phone Annetta Skaggs MD Primary Care Provider [phone] Allergies Active Allergy Reactions Criticality Noted Date Comments Feathers Stuffy Nose High 12/04/2024 Environmental. Feathers, gets congested-nasal House Dust Shortness of breath,Wheezing,Runny nose High 01/05/2008 Also allergic to feathers; same reaction SOB Hydrocodone-Acetamin ophen GI intolerance 02/26/2022 Vomiting with dosing Oxycodone-Acetaminop hen Nausea And Vomiting 11/25/2005 Medications clindamycin phosphate 1 % gel, once daily Clindamycin phosphate 1% oitment/lotion , apply thin layer twice daily following a shower. 024 Active medical supply, miscellaneous (MISCELLANEOUS MEDICAL SUPPLY MISC) Misc. Devices (Toilet Safety Frame) Misc 1 Each by route as needed (for safety / toileting). Indefinite Use - 023 Active ketoconazole (NIZORAL) 2 % cream APPLY TO FACE TWICE A DAY NEEDED FOR FLARES 024 Active triamcinolone (KENALOG) 0.1 % ointment Apply a thin layer topically to affected area daily 30 g 3 025 Active cetirizine (ZyrTEC) 10 mg tablet TAKE 1 TABLET BY MOUTH EVERY DAY 90 tablet 1 025 Active metoprolol succinate (TOPROL-XL) 100 mg 24 hr tablet Take 1 tablet (100 mg total) by mouth 1 (one) time each day. Do not crush or chew. 90 each 3 025 2025 Active semaglutide (OZEMPIC) 2 mg/dose (8 mg/3 mL) injection penIndications:Cl ass 3 severe obesity due to excess calories with serious comorbidity and body mass index (BMI) of 45.0 to 49.9 in adult ([facility] V24, [facility] V28) Inject 2 mg under the skin every 7 (seven) days. 3 mL 5 025 Active losartan (COZAAR) 100 mg tabletIndications :Essential hypertension TAKE 1 TABLET BY MOUTH 1 TIME EACH DAY. 90 tablet 025 Active meloxicam (MOBIC) 15 mg tablet TAKE 1 TABLET BY MOUTH EVERY DAY 30 tablet 025 Active simvastatin (ZOCOR) 20 mg tabletIndications :Mixed hyperlipidemia Take 1 tablet (20 mg total) by mouth at bedtime. 90 tablet 1 025 Active omeprazole (PriLOSEC) [address] capsuleIndication s:Gastroesophagea l reflux disease, unspecified whether esophagitis present Take 1 capsule (20 mg total) by mouth 1 (one) time each day. 90 capsule 1 025 Active amLODIPine (NORVASC) 10 mg tabletIndications :Essential hypertension Take 1 tablet (10 mg total) by mouth 1 (one) time each day. 90 tablet 1 025 Active metFORMIN (GLUCOPHAGE) 500 mg tabletIndications :Diabetes mellitus without complication ([facility] V24, [facility] V28) Take 1 tablet (500 mg total) by mouth 1 (one) time each day with breakfast. 90 tablet 1 025 Active fluticasone propionate (FLONASE) 50 mcg/actuation nasal spray SPRAY 2 SPRAYS BY NASAL ROUTE DAILY 48 mL 1 025 Active fluticasone propionate (FLONASE) 50 mcg/actuation nasal spray SPRAY 2 SPRAYS BY NASAL ROUTE DAILY 48 mL 025 2024 Discontinued Active Problems Problem Noted Date Diagnosed Date Syncope 06/16/2023 Overview (06/22/2024): Last Assessment & Plan: The patient has had 2 episodes of syncope which occurred in the summer 2022. The first episode occurring in December 2022 and the second episode occurred in February 2023. These episodes of syncope were similar in nature. The patient was sitting down when she suddenly felt hot and this led to an episode of loss of consciousness that lasted for approximately several seconds. No tonic-clonic movement associated with these events. On the second episode of syncope she did have a loss of sphincters. We need to consider the possibility of a cardiac etiology for her episodes of syncope. Therefore, we will proceed with further testing that would include an echocardiogram and a 30-day ambulatory nurse monitoring. Nayana other hand, given the loss of sphincters on the second episode of syncope, I think that we also need to consider the possibility of a seizure event. Would recommend to consider a referral for an evaluation with neurology service. Recommendations: 1. Echocardiogram (already ordered). 2. 30-day ambulatory nurse monitoring (already ordered). 3. Consider referral for a neurology consultation. Vitamin D deficiency 06/14/2023 DDD (degenerative disc disease), lumbar 01/08/20 Overview (06/22/2024): Last Assessment & Plan: Patient is 3 weeks s/p L3-4, L4-5 fusion (OLIF), she notes her preop symptoms have resolved. She no longer experiences the same pain from the buttocks into the groin. Postop she has noticed some numbness in the left lateral thigh, occasional pain down the left lateral leg. She has been using Dilaudid for surgery pain, every 3 hours typically. She has been staying with her daughter, getting home PT and OT. She has been walking with a walker because of the left leg numbness and occasional jolts of pain. She does however note that her walking is better than preop. She denies any fever, sweats chills, wound drainage. Ms. Mcneal is doing well postop, should note continued improvement with time. She may have some pain from left hip bursitis contributing, has difficulty laying on her left side and points directly over the lateral hip as being tender. Her surgery pain should continue to improve with time, I asked her to try weaning down on her Dilaudid use. She is already using Tylenol or Motrin in between the Dilaudid. She has a follow-up appointment with Dr. Foster in 6 weeks with lumbar spine x-rays. I encouraged her to work on her posture and core strength, continue doing exercises PT shows her every day. She asked about getting a prescription for a lumbar corset brace, which I told her we do not recommend because it weakens core muscles. All postop questions answered. She will call with any concerns or questions. Spinal stenosis of lumbar region 01/07/2022 Overview (06/22/2024): L2-L5 on CT 12/2020 Primary osteoarthritis of both knees 03/07/2021 Diabetes mellitus without complication 8 Hidradenitis suppurativa 01/12/2017 Essential hypertension 05/24/2015 Overview (06/22/2024): Last Assessment & Plan: The patient has a history of arterial hypertension. The patient's blood pressure today was noted to be well controlled. We'll continue the current antihypertensive medication regimen. Mammographic microcalcification 05/29/2011 GERD (gastroesophageal reflux disease) 6 Encounters Date Type Department Care Team Description 06/19/2025 10:00 AM EST [facility] [place] [phone] Annetta Skaggs MD Diabetes mellitus without complication ([facility] V24, [facility] V28) (Primary Dx); Essential hypertension; Mixed hyperlipidemia; Gastroesophageal reflux disease, unspecified whether esophagitis present; Left foot pain; Stage 3 chronic kidney disease, unspecified whether stage 3a or 3b CKD (CMS/HCC V24, CMS/HCC V28); Class 3 severe obesity with serious comorbidity and body mass index (BMI) of 45.0 to 49.9 in adult, unspecified obesity type (CMS/HCC V24, CMS/HCC V28); Degeneration of intervertebral disc of lumbar region with discogenic back pain 05/24/2025 Results Follow-Up Internal Medicine - [address] [place], [place] [phone] Brenda Lopez NP 05/23/2025 10:15 AM EDT Office Visit Internal Medicine - [facility] [address] [place], [place] [phone] Brenda Lopez, BRET Essential hypertension (Primary Dx); Diabetes mellitus without complication (CMS/HCC V24, CMS/HCC V28); Mixed hyperlipidemia; Gastroesophageal reflux disease, unspecified whether esophagitis present; Chronic bilateral low back pain without sciatica; Primary osteoarthritis of both knees from Last 3 Months Immunizations Immunization Administration Dates Next Due Hepatitis B (Vsjdthq-Q-Embyq , Recombivax HB-Adult) 19yo and older 07/22/2010,02/11/2010,01/08/2010 Influenza trivalent, 0.5mL, preservative free (Fluarix; FluLaval; Fluzone) ages 6mo and older (Afluria) 3 years and older 07/05/2007 Influenza trivalent, with pr eservative (Fluzone; Afluria) 6mo and older 05/25/2011 MMR, measles mumps and rubel la Live (Priorix; M-M-R II) 12mo and older 02/11/2010 Moderna SARS-CoV-2 COVID-19, mRNA, LNP-S, preservative free 08/30/2021 PPD Test 01/08/2010 Rubella 01/21/2010 Td Tetanus diptheria (Tdvax) 7yo and older 03/22,08/16/1996 Tdap Tetanus diptheria acell ular pertussis (Boostrix; Adacel) 7yo and older 12/12/2009 Surgical History Surgery Date Site/Laterality Comments OTHER SURGICAL HISTORY PROCEDURE: KY LIG/TRNSXJ FLP TUBE ABDL/VAG APPR UNI/BI COLONOSCOPY 07/22/2012 PROCEDURE: KY COLONOSCOPY FLX DX W/COLLJ SPEC WHEN PFRMD; COMMENT: normal BREAST BIOPSY PROCEDURE: BX BREAST; PERC NEEDLE CORE W/IMAG GUID; COMMENT: left bx negative OTHER SURGICAL HISTORY 09/09/2022 PROCEDURE: LUMBAR SPINE FUSION, LAT TRANSVERSE; COMMENT: L3-4, L4-5 fusion (OLIF), Dr. 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 Esophageal reflux 02/01/2006 DX:Esophageal reflux Smoker 12/13/2020 DX:Smoker Morbid obesity with BMI of 4 5.0-49.9, adult ([facility] V24, [facility] V28) 02/01/2006 DX:Morbid obesity wit h BMI of 45.0-49.9, adult ([facility]) Hyperlipidemia DX:Hyperlipidemi a Family History Medical History Relation Name Comments Breast cancer Neg Hx Colon cancer Neg Hx Ovarian cancer Neg Hx Social History Tobacco Use Types Packs/Day Years Used Date Smoking Tobacco: Some Days Cigarettes 0 29 Started: 08/16/1996 Smokeless Tobacco: Never Tobacco Cessation:Ready to Q uit: No; Counseling Given: No Comments:Smoking for 20 yrs now and then Alcohol Use Standard Drinks/Week Comments Yes 0 (1 standard drink = 0.6 oz pur e alcohol) drinks beer 5 standard /week Comments No Sex and Gender Information Value Date Recorded Sex Assigned at Female 10/20/2024 2:47 PM EST Legal Sex Female 3:00 PM EST Gender Identity Female 10/20/2024 2:47 PM EST Sexual Orientation Straight 10/20/2024 2: 47 PM EST Obstetrics History * This document contains information received from the source organization and may not represent a complete record from that organization. Para Term AB IAB SAB Ectopic Multiple Livin g Live Births 7 4 4 4 4 Date Outcome GA Total Labor Labor/2nd/3rd Weight Sex Type Anes PTL [place] A1 A5 Name Clin Term Vag-S pont Living Term Vag-S pont Living Term Vag-S pont Living Term Vag-S pont Living Last Filed Vital Signs Vital Sign Reading Time Taken Comments Blood Pressure 130/70 06/19/2025 10:07 AM EST au to Pulse 74 06/19/2025 10:07 AM EST Temperature 36.9 C (98.4 F) 02/17/2025 10:03 PM EDT Respiratory Rate 18 02/17/2025 10:03 PM EDT Oxygen Saturation 96% 02/17/2025 10:03 PM EDT Inhaled Oxygen Concentration - - Weight 133 kg (293 lb) 06/19/2025 10:07 AM EST Height 167.6 cm (5' 6 ) 06/19/2025 10:07 AM EST Body Mass Index 47.29 06/19/2025 10:07 AM EST Plan of Treatment Upcoming Encounters Date Type Department Care Team (Late st Contact Info) Description 08/14/2025 1:15 PM EST Office Visit Bariatric Surgery [facility] [address] [facility] [address] [place] [phone] Va Zamora MD [address] [place] [address] [phone] 09/12/2025 2:30 PM EST Office Visit Orthopedic Surgery [facility] [address] [facility] [address] [place] [phone] Lb Espinoza DPM [address] [facility] [address] [place] [address] Health Maintenance Due Date Last Done Comments Diabetes: Annual Foot Exam 1971 Pneumococcal Vaccine: 50+ Years (1 of 2 - PCV) 1980 RSV Immunization Adult Patients (1 - Risk 50-74 years 1-dose series) 2011 Zoster Vaccines (1 of 2) 2011 HIV Screening 07/24/2022 Medicare Annual Wellness Visit 07/24/2022 Social Influencers of Health Screening 07/24/2022 Diabetes: Annual Retina Eye Exam 06/16/2024 06/16/2023 COVID-19 Vaccine ( season) 2025 09/30/2021, 08/30/2021, 11/27/2020, Additional history exists Influenza Vaccine (#1) 2025 05/25/2011, 2006 Diabetes: Annual Urine Albumin-Creatinine Ratio (uACR) 09/12/2025 09/12/2024, 09/12/2024, 04/20/2023 Diabetes: Blood Sugar Control Test (HGBA1C) 11/21/2025 05/23/2025, 01/11/2024, 01/11/2024 Diabetes: Annual GFR (Glomerular Filtration Rate) 05/23/2026 05/23/2025, 02/17/2025, 09/12/2024, Additional history exists Hypertension/CHF/CAD Annual BMP Blood Test 05/23/2026 05/23/2025, 02/17/2025, 09/12/2024, Additional history exists Breast Cancer Screening 11/07/2026 11/08/19, 11/03/2024, 06/11/2022, Additional history exists Cervical Cancer Screening: HPV 03/17/2028 03/17/2023 DTaP,Tdap,and Td Vaccines (4 - Td or Tdap) 03/22/2030 03/22/2020, 12/12/2009, 08/16/1996 Cholesterol Screening (Lipid Panel) 05/23/2030 05/23/2025, 06/08/2023 Colorectal Cancer Screening: Colonoscopy 10/13/2033 10/13/2023 MMR Vaccines Aged Out 02/11/2010 No longer eligi ble based on patient's age to complete this topic Hepatitis B Vaccines Completed 07/22/2010, 02/11/2010, 01/08/2010 Hepatitis C Screening Completed 05/24/2015 Depression Screening Completed 06/19/2025 HIB Vaccines Aged Out No longer eligi ble based on patient's age to complete this topic HPV Vaccines Aged Out No longer eligi ble based on patient's age to complete this topic Hepatitis A Vaccines Aged Out No long er eligible based on patient's age to complete this topic IPV Vaccines Aged Out No longer eligi ble based on patient's age to complete this topic Meningococcal ACWY Vaccine Aged Out N o longer eligible based on patient's age to complete this topic Meningococcal B Vaccine Aged Out No l onger eligible based on patient's age to complete this topic RSV Immunization Patients Under 20 months Aged Out No longer eligible based on patient's age to complete this topic Varicella Vaccines Aged Out No longer eligible based on patient's age to complete this topic Procedures Procedure Name Priority Date/Time Associated Diagnosis Comments CBC WITH AUTO DIFFERENTIAL Routine 05/23/2025 10:50 AM EDT Other fatigue HEMOGLOBIN A1C Routine 05/23/2025 10:50 AM EDT Diabetes mellitus without complication (CMS/HCC V24, CMS/HCC V28) COMPREHENSIVE METABOLIC PANEL Routine 05/23/2025 10:50 AM EDT Mixed hyperlipidemia LIPID PANEL WITH REFLEX TO DIRECT LDL Routine 05/23/2025 10:50 AM EDT Mixed hyperlipidemia CBC AND DIFFERENTIAL Routine 05/23/2025 10:50 AM EDT Other fatigue THYROID STIMULATING HORMONE WITH REFLEX TO FREE T4 AND FREE T3 Routine 05/23/2025 10:50 AM EDT Other fatigue MG MAMMO DIAGNOSTIC ADDL VIEWS LEFT Routine 11/07/2024 8:42 AM EDT Breast asymmetry MICROALBUMIN CREATININE URINE RATIO Routine 09/12/2024 1:11 PM EST Essential hypertension COLONOSCOPY Routine 10/13/2023 DIABETES EYE EXAM Routine 06/16/2023 HPV Routine 03/17/2023 HEPATITIS C SCREENING Routine 05/24/2015 from Last 3 Months or Most Recently Relevant to Health Maintenance Results * Thyroid stimulating hormone with reflex to free t4 and free t3 (05/23/2025 10:50 AM EDT) TSH 2.61 0.40 - 4.00 mcIU/mL LAB CHEMISTRY METHOD 05/23/2025 4:19 PM EDT [facility] Blood Venous blood specimen / Unknown Venipuncture / Unknown 05/23/2025 10:50 AM EDT 05/23/2025 10:50 AM EDT us Brenda Lopez NP LAB BLOOD ORDERABLES Final Resul t [facility] [address] [place] [address], [place] [phone] * Lipid panel with reflex to direct LDL (05/23/2025 10:50 AM EDT) [facility] Cholesterol 182 0 - 200 mg/dL LAB CHEMISTRY METHOD 05/23/2025 3:21 PM EDT [facility] Triglycerides 128 0 - 150 mg/dL LAB CHEMISTRY METHOD 05/23/2025 3:21 PM EDT [facility] HDL 70 >=40 mg/dL LAB CHEMISTRY METHOD 05/23/2025 3:21 PM EDT [facility] LDL Calculated 86 0 - 100 mg/dL LAB CHEMISTRY METHOD 05/23/2025 3:21 PM EDT [facility] Comment:Estimated LDL Calcul ated using equation: Total cholesterol - HDL cholesterol - (Triglycerides/5) VLDL Cholesterol Patel 25.6 mg/dL LAB CHEMISTRY METHOD 05/23/2025 3:21 PM EDT [facility] Non HDL Chol. (LDL+VLDL) 112 <145 mg/dL LAB CHEMISTRY METHOD 05/23/2025 3:21 PM EDT [facility] Chol/HDL Ratio 2.6 0.0 - 4.4 LAB CHEMISTRY METHOD 05/23/2025 3:21 PM T [facility] Blood Venous blood specimen / Unknown Venipuncture / Unknown 05/23/2025 10:50 AM EDT 05/23/2025 10:50 AM EDT us Brenda Lopez NP LAB BLOOD ORDERABLES Final Resul t [facility] [address] [place] [address], [place] [phone] * (ABNORMAL) CBC auto differential (05/23/2025 10:50 AM EDT) [facility] WBC 9.0 4.8 - 10.8 K/mcL LAB HEMETOLOGY METHOD 05/23/2025 2:08 PM [facility] RBC 4.30 3.80 - 4.80 M/mcL LAB HEMETOLOGY METHOD 05/23/2025 2:08 PM [facility] Hemoglobin 12.5 11.5 - 16.0 g/dL LAB HEMETOLOGY METHOD 05/23/2025 2:08 PM [facility] Hematocrit 40.3 35.0 - 47.0 % LAB HEMETOLOGY METHOD 05/23/2025 2:08 PM [facility] MCV 93.5 79.0 - 98.0 FL LAB HEMETOLOGY METHOD 05/23/2025 2:08 PM [facility] MCH 29.0 27.0 - 32.0 pcg LAB HEMETOLOGY METHOD 05/23/2025 2:08 PM [facility] MCHC 31.0(L) 32.0 - 37.0 g/dL LAB HEMETOLOGY METHOD 05/23/2025 2:08 PM [facility] RDW 12.8 11.0 - 15.0 % LAB HEMETOLOGY METHOD 05/23/2025 2:08 PM [facility] Platelets 286 130 - 400 K/mcL LAB HEMETOLOGY METHOD 05/23/2025 2:08 PM [facility] MPV 11.2(H) 7.0 - 11.0 FL LAB HEMETOLOGY METHOD 05/23/2025 2:08 PM [facility] NRBC 0.0 <1.0 % LAB HEMETOLOGY METHOD 05/23/2025 2:08 PM [facility] NRBC Absolute 0.00 <0.10 K/mcL LAB HEMETOLOGY METHOD 05/23/2025 2:08 PM [facility] Neutrophils Relative 59.4 % LAB HEMETOLOGY METHOD 05/23/2025 2:08 PM [facility] Lymphocytes Relative 29.9 % LAB HEMETOLOGY METHOD 05/23/2025 2:08 PM [facility] Monocytes Relative 6.6 % LAB HEMETOLOGY METHOD 05/23/2025 2:08 PM [facility] Eosinophils Relative 3.3 % LAB HEMETOLOGY METHOD 05/23/2025 2:08 PM [facility] Basophils Relative 0.4 % LAB HEMETOLOGY METHOD 05/23/2025 2:08 PM [facility] Immature Granulocytes Relative 0.4 % LAB HEMETOLOGY METHOD 05/23/2025 2:08 PM [facility] Neutrophils Absolute 5.33 1.50 - 7.00 K/mcL LAB HEMETOLOGY METHOD 05/23/2025 2:08 PM [facility] Lymphocytes Absolute 2.69 1.00 - 5.00 K/mcL LAB HEMETOLOGY METHOD 05/23/2025 2:08 PM [facility] Monocytes Absolute 0.59 0.20 - 1.00 K/mcL LAB HEMETOLOGY METHOD 05/23/2025 2:08 PM [facility] Eosinophils Absolute 0.30 0.00 - 0.50 K/mcL LAB HEMETOLOGY METHOD 05/23/2025 2:08 PM [facility] Basophils Absolute 0.04 0.00 - 0.20 K/mcL LAB HEMETOLOGY METHOD 05/23/2025 2:08 PM [facility] Immature Granulocytes Absolute 0.04(H) 0.00 - 0.03 K/mcL LAB HEMETOLOGY METHOD 05/23/2025 2:08 PM [facility] Blood Venous blood specimen / Unknown Venipuncture / Unknown 05/23/2025 10:50 AM EDT 05/23/2025 10:50 AM EDT Brenda Lopez COMPUTER SYSTEMS INFORMATION DIRECTOR LAB BLOOD ORDERABLES Final Resul t Performing Organization Address [facility]/ZIP Co de Phone Number [facility] [address] [place] [address], [place] [phone] * Hemoglobin A1c (05/23/2025 10:50 AM EDT) Pathologist [facility] Hemoglobin A1C 6.0 <6.5 % LAB CHEMISTRY METHOD 05/23/2025 3:12 PM EDT [facility] Mean Bld Glu Estim. 126 mg/dL LAB CHEMISTRY METHOD 05/23/2025 3:12 PM EDT [facility] Blood Venous blood specimen / Unknown Venipuncture / Unknown 05/23/2025 10:50 AM EDT 05/23/2025 10:50 AM EDT us Brenda Lopez NP LAB BLOOD ORDERABLES Final Resul t Performing Organization Address [facility] [[email or web address]] de Phone Number [facility] [address] [place] [address], [place] [phone] * (ABNORMAL) Comprehensive metabolic panel (05/23/2025 10:50 AM EDT) Pathologist [facility] Sodium 142 133 - 145 mmol/L LAB CHEMISTRY METHOD 05/23/2025 3:21 PM EDT [facility] Potassium 4.4 3.5 - 5.5 mmol/L LAB CHEMISTRY METHOD 05/23/2025 3:21 PM EDT [facility] Chloride 108 96 - 110 mmol/L LAB CHEMISTRY METHOD 05/23/2025 3:21 PM EDT [facility] CO2 27 21 - 32 mmol/L LAB CHEMISTRY METHOD 05/23/2025 3:21 PM EDT [facility] Anion Gap 7 3 - 11 LAB CHEMISTRY METHOD 05/23/2025 3:21 PM EDT [facility] Glucose 113(H) 70 - 100 mg/dL LAB CHEMISTRY METHOD 05/23/2025 3:21 PM [facility] BUN 14 5 - 25 mg/dL LAB CHEMISTRY METHOD 05/23/2025 3:21 PM [facility] Creatinine 1.18(H) 0.50 - 1.10 mg/dL LAB CHEMISTRY METHOD 05/23/2025 3:21 PM [facility] eGFR 52(L) >=60 mL/min/1. 73m2 LAB CHEMISTRY METHOD 05/23/2025 3:21 PM [facility] Comment:Calculation based on the Chronic Kidney Disease Epidemiology Collaboration (CKD-EPI) equation refit without adjustment for race. BUN/Creatinine Ratio 11.9 LAB CHEMISTRY METHOD 05/23/2025 3:21 PM [facility] Calcium 10.0 8.5 - 10.5 mg/dL LAB CHEMISTRY METHOD 05/23/2025 3:21 PM [facility] AST (SGOT) 13 10 - 42 unit/L LAB CHEMISTRY METHOD 05/23/2025 3:21 PM [facility] ALT (SGPT) 25 10 - 60 unit/L LAB CHEMISTRY METHOD 05/23/2025 3:21 PM [facility] Alkaline Phosphatase 82 42 - 121 unit/L LAB CHEMISTRY METHOD 05/23/2025 3:21 PM [facility] Total Protein 7.7 6.0 - 8.0 g/dL LAB CHEMISTRY METHOD 05/23/2025 3:21 PM [facility] Albumin 3.8 3.2 - 5.0 g/dL LAB CHEMISTRY METHOD 05/23/2025 3:21 PM [facility] Total Bilirubin 0.8 0.0 - 1.4 mg/dL LAB CHEMISTRY METHOD 05/23/2025 3:21 PM [facility] Blood Venous blood specimen / Unknown Venipuncture / Unknown 05/23/2025 10:50 AM EDT 05/23/2025 10:50 AM EDT us Brenda Lopez NP LAB BLOOD ORDERABLES Final Resul t [facility] [address] [place] [address], [place] [phone] * MG Mammo Diagnostic Addl Views Left (11/07/2024 8:42 AM EDT) Anatomical Region Laterality Modality Breast Left Mammography 11/07/2024 8:30 AM EDT Impressions 11/07/2024 8:35 AM EDT No mammographic evidence of malignancy. BI-RADS CATEGORY: 2 - BENIGN RECOMMENDATION: Screening bilateral mammogram is recommended in 1 year. Mammo Location: [facility], [address] [place] [id number] -------- FINAL REPORT -------- Dictated By: Zeus Perez Dictated Date: 11/07/2024 08:30 ET Assigned Physician: Zeus Perez Reviewed and Electronically Signed By: Zeus Perez Signed Date: 11/07/2024 08:35 ET Workstation ID: [id number] Transcribed By: Self Edit Transcribed Date: 11/07/2024 08:32 ET Narrative 11/07/2024 8:35 AM EDT CLINICAL: The patient is a 64 years Female. Screening mammography performed 11/03/2024 demonstrated an asymmetry with possible calcifications in the lower inner quadrant of left breast, middle to posterior depth. The patient now presents for supplementary imaging. COMPARISON: 11/03/2024, 06/10/2022, and 03/15/2018. TECHNIQUE: Spot compression magnification views of the area of concern in the left breast in CC and true lateral projections is performed in the enVistae 2000-D unit. Computer aided detection utilizing the iCAD system was utilized. FINDINGS: The study demonstrates complete effacement of the oval asymmetry of concern with compression. This indicates that the finding on screening mammography represented superposition artifact. A few scattered punctate calcifications are present in this area, without suspicious cluster. TISSUE DENSITY: There are scattered areas of fibroglandular density. (BI-RADS category B) Procedure Note Zeus Perez MD - 11/07/2024 CLINICAL: The patient is a 64 years Female. Screening mammographyperformed 11/03/2024 demonstrated an asymmetry with possible calcificationsin the lower inner quadrant of left breast, middle to posterior depth.The patient now presents for supplementary imaging. COMPARISON: 11/03/2024, 06/10/2022, and 03/15/2018. TECHNIQUE: Spot compression magnification views of the area of concern inthe left breast in CC and true lateral projections is performed in the [employer] 2000- D unit. Computer aided detection utilizing the NERIystem was utilized. FINDINGS: The study demonstrates complete effacement of the oval asymmetryof concern with compression. This indicates that the finding on screeningmammography represented superposition artifact. A few scattered punctatecalcifications are present in this area, without suspicious cluster. TISSUE DENSITY: There are scattered areas of fibroglandular density.(BI-RADS category B) IMPRESSION: No mammographic evidence of malignancy. BI-RADS CATEGORY: 2 - BENIGN RECOMMENDATION: Screening bilateral mammogram is recommended in 1 year. Mammo Location: [facility], [address] [place] [id number] -------- FINAL REPORT -------- Dictated By: Zeus Perez Dictated Date: 11/07/2024 08:30 ET Assigned Physician: Zeus Perez Reviewed and Electronically Signed By: Zeus Perez Signed Date: 11/07/2024 08:35 ET Workstation ID: [id number] Transcribed By: Self Edit Transcribed Date: 11/07/2024 08:32 ET us Corrine Ocampo DO IM BI PROCEDURES Final Result * Microalbumin creatinine urine ratio (09/12/2024 1:11 PM EST) Creatinine, Urine 240.0 mg/dL LAB CHEMISTRY METHOD 09/12/2024 3:22 PM EST [facility] Microalb, Ur 27.2 0.0 - 29.0 mg/L LAB CHEMISTRY METHOD 09/12/2024 3:22 PM EST [facility] Microalb/Creat Ratio 11 <30 mg/g creat LAB CHEMISTRY METHOD 09/12/2024 3:22 PM EST [facility] Urine Urine specimen obtained by clean catch procedure / Unknown Non-blood Collection / Unknown 09/12/2024 1:11 PM EST 09/12/2024 1:11 PM EST Roni Granados MD LAB URINE ORDERABLES Final Res ult [facility] [address] [place] [address], * Colonoscopy (10/13/2023) [facility] Colonoscopy no interpretation , abstracted Anatomical Region Laterality Modality Other Historical Provider HEALTH MAINTENANCE Final Result * Diabetes Eye Exam (06/16/2023) [facility] Diabetes: Annual Retina Eye Exam abstracted Historical Provider HEALTH MAINTENANCE Final Result * Cervical Cancer Screening: HPV (03/17/2023) [facility] Cervical Cancer Screening: HPV normal, abstracted Historical Provider HEALTH MAINTENANCE Final Result * Hepatitis C Screening (05/24/2015) [facility] Hepatitis C Screening abstracted [facility] Provider HEALTH MAINTENANCE Final Result from Last 3 Months or Most Recently Relevant to Health Maintenance Insurance MEDICA[place] - [place] MEDICARE Advance Directives Documents on File Type Date Recorded Patient Carcass Splitter Expl anation Health Care Decision (hx) 09/24/2022 AD QUEEN DIRECTIVE Health Care Decision (hx) 09/18/2022 HE ALTH CARE PROXY Health Care Decision (hx) 09/18/2022 HE ALTH CARE PROXY Health Care Decision (hx) 09/18/2022 HE ALTH CARE PROXY Health Care Decision (hx) 09/18/2022 HE ALTH CARE PROXY Health Care Decision (hx) 09/18/2022 HE ALTH CARE PROXY Health Care Decision (hx) 09/18/2022 HE ALTH CARE PROXY Health Care Decision (hx) 09/18/2022 HE ALTH CARE PROXY Health Care Decision (hx) 09/18/2022 HE ALTH CARE PROXY Health Care Decision (hx) 09/18/2022 HE ALTH CARE PROXY Health Care Decision (hx) 09/18/2022 HE ALTH CARE PROXY Care Teams Perpetual Inventory Clerk Relationship Specialty Start Date End Date Annetta Skaggs MD [address] [place], [place] PCP - General Internal Medicine 03/28/25
== END 2025-08-06 12:55 | disposition home or self-care (01) ==
LOC: HO.PMC 12:07
PROVIDERS: PCP Internal Medicine; Visit Provider Internal Medicine
DX: M54.40 Lumbago with sciatica, unspecified side (principal); Z98.1 Arthrodesis status
CPT/HCPCS: 99204

== ENCOUNTER → 2025-08-06 12:07 | Outpatient (BNVA) | payer MEDICARE, MEDICAID, SELFPAY | PROVIDERS: PCP Internal Medicine; Visit Provider Internal Medicine | DX: M54.40 Lumbago with sciatica, unspecified side (principal); Z98.1 Arthrodesis status | CPT/HCPCS: 99202 ==